=== PATIENT | male | born 1945 | race Caucasian/White ===

== ENCOUNTER 2016-08-10 08:57 | Day surgery (SDC) | payer MEDICARE ==
--- NOTE | ~2016-08-10 | EGD ---
EGD REPORT [facility] [address] [place]. [address] NAME: STEVEN ARREGUIN : [birth year] [place] [facility] [place] [id number] AGE: 71 ADM/REG DATE : 08/10/16 MR#: [id number] REPORT SERV DATE: 08/10/16 DICTATED BY: NORBERTO JIN DATE: 08/10/16 REPORT STATUS : Draft [facility] DATE: 08/10/16 Endoscopy Center Patient Name: Setven Arreguin Date of : 1945 Attending MD: NORBERTO JIN MD Procedure Date No Time: 08/10/2016 Procedure: Colonoscopy Indications: High risk colon cancer surveillance: Personal history of colonic polyps Referring MD: JEIMY TAYLOR Medicines: as per anesthesia Complications: No immediate complications. Procedure: Pre-Anesthesia Assessment: - ASA Grade Assessment: II - A patient with mild systemic disease. After I obtained informed consent, the scope was passed under direct vision. Throughout the procedure, the patient's blood pressure, pulse, and oxygen saturations were monitored continuously. The PCF [id number] was introduced through the anus and advanced to the cecum, identified by appendiceal orifice and ileocecal valve. The colonoscopy was performed without difficulty. The patient tolerated the procedure. The quality of the bowel preparation was fair. Findings: The perianal and digital rectal examinations were normal. A sessile polyp was found in the recto-sigmoid colon. The polyp was 5 mm in size. The polyp was removed with a cold biopsy forceps. Resection and retrieval were complete. A sessile polyp was found in the ascending colon. The polyp was 4 mm in size. The polyp was removed with a cold biopsy forceps. Resection and retrieval were complete. A few small-mouthed diverticula were found in the sigmoid colon, in the descending colon and in the transverse colon. Internal hemorrhoids were found during endoscopy and were mild. Impression: - One 5 mm polyp at the recto-sigmoid colon. Resected and retrieved. - One 4 mm polyp in the ascending colon. Resected and retrieved. - Diverticulosis in the sigmoid colon, in the descending colon and in the transverse colon. - Internal hemorrhoids. EGD REPORT [address] [address] NAME: STEVEN ARREGUIN : [birth year] [place] [facility] [place] [id number] AGE: 71 ADM/REG DATE : 08/10/16 MR#: [id number] REPORT SERV DATE: 08/10/16 DICTATED BY: NORBERTO JIN DATE: 08/10/16 REPORT STATUS : Draft TRANSCRIBED BY: [facility] DATE: 08/10/16 Recommendation: - Await pathology results. - Repeat colonoscopy for surveillance based on pathology results. Procedure Code(s): --- Professional --- 04004, Colonoscopy, flexible, proximal to splenic flexure; with biopsy, single or multiple Diagnosis Code(s): --- Professional --- D12.2, Benign neoplasm of ascending colon D12.7, Benign neoplasm of rectosigmoid junction K64.8, Other hemorrhoids K57.30, Diverticulosis of large intestine without perforation or abscess without bleeding Z86.010, Personal history of colonic polyps CPT copyright 2013 [employer]. All rights reserved. The codes documented in this report are preliminary and upon student success coach review may be revised to meet current compliance requirements. NORBERTO JIN MD 08/10/2016 11:22 AM This report has been signed electronically. Number of Addenda: 0 Note Initiated On: 08/10/2016 10:49 AM Scope Withdrawal Time 0 hours 12 minutes 2 seconds [address] [place] [address]
[~2016-08-10 08:57] MED LIST: ALEVE220 MG PO; COZAAR100 MG PO; CURCUMIN PO; FISH-EPA1000 MG PO; FLOMAX4 PO; GLUCCHONDR PO; MAX25 PO; MULTIPLE VIT PO; OCUVITE PO; PRAVAC PO; PROAIR HFA INH; TUMSROLL PO; VITAMIN D31000 UNIT PO; VITC500 PO
== END 2016-08-10 23:59 | disposition home or self-care (01) ==
LOC: DMU 08:57
PROVIDERS: Internal Medicine Gastroenterology
PROC: 0DBN8ZX Excision of Sigmoid Colon, Via Natural or Artificial Opening Endoscopic, Diagnostic (ICD-10-PCS; 2016-08-10)
PROC: 0DBK8ZX Excision of Ascending Colon, Via Natural or Artificial Opening Endoscopic, Diagnostic (ICD-10-PCS; principal; 2016-08-10 11:00)
DX: D12.2 Benign neoplasm of ascending colon (principal); D12.7 Benign neoplasm of rectosigmoid junction; K64.8 Other hemorrhoids; K57.30 Diverticulosis of large intestine without perforation or abscess without bleeding; H35.30 Unspecified macular degeneration; I10 Essential (primary) hypertension; J44.9 Chronic obstructive pulmonary disease, unspecified; N40.0 Benign prostatic hyperplasia without lower urinary tract symptoms; E66.9 Obesity, unspecified; H91.90 Unspecified hearing loss, unspecified ear; E78.00 Pure hypercholesterolemia, unspecified; Z86.010 Personal history of colon polyps; Z88.8 Allergy status to other drugs, medicaments and biological substances; Z79.899 Other long term (current) drug therapy; Z98.41 Cataract extraction status, right eye; Z98.42 Cataract extraction status, left eye; Z98.890 Other specified postprocedural states
CPT/HCPCS: 88305